=== PATIENT | male | born 1985 | race Caucasian/White ===

== ENCOUNTER 2016-07-06 15:40 | Outpatient (CLI) | payer MEDICAID | END 2016-07-06 15:41 | disposition home or self-care (01) | DX: M25.531 Pain in right wrist (principal) ==

== ENCOUNTER 2016-08-23 07:49 | Day surgery (SDC) | payer MEDICAID ==
[2016-08-23] MEDS ORDERED: ceFAZolin 1 GM VIAL ONE (07:57)
[2016-08-23] MEDS ORDERED: LACTATED RINGERS 1,000 ML IV ONE ×2 (08:03→11:30)
[2016-08-23] MEDS ORDERED: PROPOFOL 200 MG/20 ML VIAL IVP ONE (10:07)
[2016-08-23] MEDS ORDERED: MIDAZOLAM 2 MG/2 ML VIAL IVP ONE (10:07)
[2016-08-23] MEDS ORDERED: fentaNYL 100 MCG/2 ML VIAL IVP ONE (10:07)
[2016-08-23] MEDS ORDERED: BUPIVACAINE 0.25%-EPI 1:200000 PF 30 ML VIAL SUBQ ONE ×2 (10:28→10:56)
[2016-08-23] MEDS ORDERED: fentaNYL 100 MCG/2 ML VIAL ONE (11:21)
[2016-08-23] MEDS ORDERED: KETOROLAC 15 MG/ML VIAL ONE (11:53)
== END 2016-08-23 07:50 | disposition home or self-care (01) ==
PROC: 0LB50ZZ Excision of Right Lower Arm and Wrist Tendon, Open Approach (ICD-10-PCS; principal; 2016-08-23 07:30)
DX: M67.431 Ganglion, right wrist (principal); Z87.891 Personal history of nicotine dependence
CPT/HCPCS: 25111; J7120